=== PATIENT | female | born 1945 | race Caucasian/White ===

== ENCOUNTER → 2017-05-05 | Outpatient (CLI) | payer OTHER ==
[~2017-05-05] MED LIST: ASA5UEC PO; CIPRO500 MG PO; FLAGYL500 MG PO; IBUPROFEN 200200 M1 PO; LIPITOR10 MG PO; LISINOPRIL10 MG PO; OMEPRAZOLE 20 M20 MG PO; PEPCID20 MG PO; TYLENOL325 MG PO; VITAMIN B-12500 MCG PO
== END ==
LOC: RAD 11:50
DX: Z12.31 Encounter for screening mammogram for malignant neoplasm of breast (principal)

== ENCOUNTER 2018-08-25 20:57 | Emergency (ER) | payer OTHER ==
[~2018-08-25] VITALS: Ht 165.1 cm; Wt 81.7 kg
--- NOTE | ~2018-08-25 | EKG ---
[place] [id number] [place] [address] ELECTROCARDIOGRAM REPORT Name: ADRI ZARATE Room #: [facility]OLESCENTSSerena#: [id number] Admission: 08/25/18 Attend Phys: Discharge: 08/25/18 Date of : 43 Report #: [id number] THIS REPORT FOR: //name// [facility] ED Test Date: 2018-08-25 Test Time: 21:35:58 Pat Name: ADRI ZARATE Department: Room: Gender: F [employer]: ALEX JOHNS : 1945 Requested By: Dave Crum Order Number: [id number] MD: Jaime Espinal Measurements Intervals [place] Rate: 75 P: 75 NM: 214 QRS: -39 QRSD: 89 T: 83 QT: 391 QTc: 437 Interpretive Statements Sinus rhythm Borderline prolonged NM interval Poor R-wave progression Compared to ECG 10/13/2015 16:26:51 No significant change Electronically Signed On 08-26-2018 10:22:57 SUPPLY ANALYST by Jaime Espinal [email or web address] <ELECTRONICALLY SIGNED> By: Jaime Espinal MD 08/26/18 1022 2135 2135 Jaime Espinal MD /CRIS
[2018-08-25 21:38] LABS: ABSOLUTE NEUTROPHILS 6.2 thou/uL (1.4-8.2); BASOPHILS 0.5 % (0.0-2.0); EOSINOPHILS 0.4 % (0.0-3.0); HEMATOCRIT 42.8 % (37.0-47.0); HEMOGLOBIN 14.9 gm/dL (12.0-15.0); LYMPHOCYTES 16.6 % (24.0-44.0); MCH 31.1 pg (26.0-34.0); MCHC 34.8 g/dL (28.0-37.0); MCV 89.3 fL (80.0-100.0); MONOCYTES 4.5 % (1.0-8.0); PLATELET COUNT 280 thou/uL (150-400); RBC 4.79 mil/uL (4.20-5.00); RDW 13.5 % (10.5-14.5); WBC 7.9 thou/uL (4.0-11.0)
[2018-08-25 21:47] LABS: ANION GAP 12 mmol/L (7-16); BUN 16 mg/dL (7-18); CALCIUM 9.1 mg/dL (8.5-10.1); CHLORIDE 105 mmol/L (98-107); CO2 26 mmol/L (21-32); CREATININE 0.9 mg/dL (0.6-1.0); GLUCOSE 158 mg/dL (74-106); POTASSIUM 3.7 mmol/L (3.5-5.1); SODIUM 143 mmol/L (136-145)
[2018-08-25 21:57] LABS: ALBUMIN 3.7 g/dL (3.4-5.0); DIRECT BILIRUBIN 0.2 mg/dL (<0.1-0.3); LIPASE 175 U/L (73-393); SGOT 23 U/L (15-37); SGPT 30 U/L (30-65); TOTAL BILIRUBIN 0.8 mg/dL (<0.1-1.0); TOTAL PROTEIN 7.3 g/dL (6.4-8.2); TROPONIN-I <0.06 ng/mL (<0.06)
[2018-08-25 22:32] LABS: URINE BILIRUBIN NEGATIVE (Negative); URINE BLOOD NEGATIVE (Negative); URINE CLARITY CLEAR; URINE COLOR YELLOW; URINE GLUCOSE-RANDOM* NEGATIVE (Negative); URINE KETONES TRACE (Negative); URINE NITRITE-REFLEX NEGATIVE (Negative); URINE PROTEIN (DIPSTICK) NEGATIVE (Negative)
[2018-08-25 22:46] LABS: URINE LEUKOCYTES-REFLEX TRACE (Negative)
[2018-08-25] MEDS ORDERED: ZOFRAN ODT4 MG PO (22:55)
[2018-08-25 23:54] VITALS: BP 142/88
== END 2018-08-25 23:55 | disposition home or self-care (01) ==
LOC: ER 20:57
PROVIDERS: Emergency Medicine
DX: R11.2 Nausea with vomiting, unspecified (principal); K21.9 Gastro-esophageal reflux disease without esophagitis; Z88.8 Allergy status to other drugs, medicaments and biological substances; Z90.710 Acquired absence of both cervix and uterus

== ENCOUNTER → 2021-03-15 | Outpatient (CLI) | payer OTHER ==
[~2021-03-15] MED LIST changes: +ZOFRAN ODT4 MG PO
== END ==
LOC: RAD 13:38
PROVIDERS: ATTEND Family Medicine
DX: Z12.31 Encounter for screening mammogram for malignant neoplasm of breast (principal)